=== PATIENT | male | born 1975 | race Hispanic/Latino ===

== ENCOUNTER 2018-07-05 21:28 | Inpatient (IN) | payer SELFPAY ==
[~2018-07-05] VITALS: Ht 162.6 cm; Wt 88.4 kg
[2018-07-05] MEDS ORDERED: ZOSYN 3.375GM+NS 50ML 50 ML IV ONE (22:09)
[2018-07-05 22:15] LABS: BASOPHILS % (AUTO) 0.5 % (0.0-5.0); EOSINOPHILS % (AUTO) 1.5 % (0.0-8.0); HEMATOCRIT 45.9 % (42-54); LYMPHOCYTES % (AUTO) 17.4 % (21.0-51.0); MEAN CORPUSCULAR HEMOGLOBIN 29.6 pg (27.0-33.0); MEAN CORPUSCULAR HGB CONC 34.2 g/dL (32.0-36.0); MEAN CORPUSCULAR VOLUME 86.6 fL (79-99); MONOCYTES % (AUTO) 7.5 % (3.0-13.0); NEUTROPHILS % (AUTO) 73.1 % (40.0-77.0); PLATELET COUNT (AUTO) 246 K/uL (130-400); RED CELL DISTRIBUTION WIDTH 13.5 % (11.0-15.5); WHITE BLOOD COUNT (AUTO) 10.7 K/uL (4.8-10.8)
[2018-07-05 22:28] LABS: CREATININE 1.3 mg/dL (0.5-1.5); POTASSIUM 3.7 mmol/L (3.5-5.1)
[2018-07-05 22:33] LABS: ALBUMIN 3.6 g/dL (3.5-5.0); BILIRUBIN,TOTAL 0.4 mg/dL (0.2-1.0); CRP QUANTITATIVE 109.9 mg/L (0.00-9.0); TOTAL PROTEIN, SERUM 8.4 g/dL (6.0-8.3)
[2018-07-05 23:26] LABS: ERYTHROCYTE SEDIMENTATION RATE 30 MM/HR (0-15)
[2018-07-05] MEDS ORDERED: TETANUS/DIPHTHERIA TOXOID [ADULT] 0.5 ML VIAL IM ONE (23:38)
[2018-07-05] MEDS ORDERED: VANCOMYCIN 1GM+NS 250ML 250 ML IV ONE (23:45)
[2018-07-06] MEDS: SODIUM CHLORIDE 0.9% 1000ML 1,000 ML IV SCH ×3 (00:42→21:10)
[2018-07-06] MEDS ORDERED: ONDANSETRON HCL 4 MG/2 ML VIAL IV PRN (00:45)
[2018-07-06] MEDS ORDERED: ACETAMINOPHEN 325 MG TAB PO PRN ×2 (00:45)
[2018-07-06] MEDS ORDERED: KETOROLAC TROMETHAMINE 30MG/ML ONE (01:49)
[2018-07-06] MEDS ORDERED: SODIUM CHLORIDE 0.9% 1000ML 1,000 ML IV ONE (03:42)
[2018-07-06] MEDS: ZOSYN 3.375GM+NS 50ML 50 ML IV SCH ×3 (05:00→21:00)
[2018-07-06] MEDS ORDERED: ONDANSETRON HCL 4 MG/2 ML VIAL ONE ×2 (05:37→11:38)
[2018-07-06] MEDS ORDERED: MORPHINE SULFATE 2 MG/ML 1ML SYG ONE ×3 (05:37→15:42)
[2018-07-06] MEDS ORDERED: ZOSYN 3.375GM+NS 50ML 50 ML IV ONE ×2 (06:08→14:31)
[2018-07-06] MEDS ORDERED: ENOXAPARIN SODIUM 30 MG/0.3 ML SQ ONE (08:28)
[2018-07-06] MEDS ORDERED: FAMOTIDINE/PF 20 MG/2 ML VIAL IV ONE (08:28)
[2018-07-06] MEDS: FAMOTIDINE/PF 20 MG/2 ML VIAL IV SCH ×2 (09:00→21:03)
[2018-07-06] MEDS: ENOXAPARIN SODIUM 30 MG/0.3 ML SQ SCH ×2 (09:00→21:06)
[2018-07-06 16:15] VITALS: BP 153/87
[2018-07-06] MEDS ORDERED: VANCOMYCIN PROTOCOL PER PHARMACY IV PRN (18:45)
[2018-07-06 19:00] VITALS: BP 146/90
[2018-07-06] MEDS: VANCOMYCIN 1GM+NS 250ML 250 ML IV SCH (21:10)
[2018-07-06 23:48] VITALS: BP 151/99
[2018-07-07] MEDS: MORPHINE SULFATE 2 MG/ML 1ML SYG IV PRN ×3 (03:54→18:47)
[2018-07-07 04:09] VITALS: BP 134/94
[2018-07-07 05:13] LABS: MEAN CORPUSCULAR HEMOGLOBIN 29.5 pg (27.0-33.0); MEAN CORPUSCULAR HGB CONC 34.2 g/dL (32.0-36.0); MEAN CORPUSCULAR VOLUME 86.4 fL (79-99); PLATELET COUNT (AUTO) 235 K/uL (130-400); RED BLOOD CELL COUNT(AUTO) 4.63 MIL/uL (4.50-6.20); RED CELL DISTRIBUTION WIDTH 13.3 % (11.0-15.5)
[2018-07-07 05:39] LABS: CREATININE 1.3 mg/dL (0.5-1.5); CRP QUANTITATIVE 61.9 mg/L (0.00-9.0); POTASSIUM 3.6 mmol/L (3.5-5.1)
[2018-07-07] MEDS: ZOSYN 3.375GM+NS 50ML 50 ML IV SCH ×2 (05:42→14:54)
[2018-07-07 08:00] VITALS: BP 153/95
[2018-07-07 08:55] LABS: HEMOGLOBIN A1C 5.9 % (4.0-6.0)
[2018-07-07] MEDS: VANCOMYCIN 1GM+NS 250ML 250 ML IV SCH ×2 (09:06→21:40)
[2018-07-07] MEDS: FAMOTIDINE/PF 20 MG/2 ML VIAL IV SCH ×2 (09:07→21:40)
[2018-07-07] MEDS: ENOXAPARIN SODIUM 30 MG/0.3 ML SQ SCH (09:08)
[2018-07-07 12:00] VITALS: BP 142/106
[2018-07-07 16:00] VITALS: BP 146/81
[2018-07-07] MEDS: CEFEPIME HCL 2 GM VIAL IVP SCH ×2 (18:40→23:20)
[2018-07-07 19:00] VITALS: BP 147/83
[2018-07-07] MEDS ORDERED: CEFEPIME HCL 1 GM VIAL ONE (23:08)
[2018-07-08] VITALS: BP 154/92
[2018-07-08] MEDS: MORPHINE SULFATE 2 MG/ML 1ML SYG IV PRN ×3 (03:11→14:05)
[2018-07-08 04:00] VITALS: BP 157/98
[2018-07-08 06:05] LABS: MEAN CORPUSCULAR HEMOGLOBIN 29.4 pg (27.0-33.0); MEAN CORPUSCULAR HGB CONC 34.3 g/dL (32.0-36.0); MEAN CORPUSCULAR VOLUME 85.6 fL (79-99); PLATELET COUNT (AUTO) 286 K/uL (130-400); RED BLOOD CELL COUNT(AUTO) 4.79 MIL/uL (4.50-6.20); RED CELL DISTRIBUTION WIDTH 13.1 % (11.0-15.5); WHITE BLOOD COUNT (AUTO) 8.6 K/uL (4.8-10.8)
[2018-07-08 06:18] LABS: CREATININE 1.2 mg/dL (0.5-1.5); POTASSIUM 3.9 mmol/L (3.5-5.1)
[2018-07-08] MEDS ORDERED: CEFEPIME HCL 1 GM VIAL ONE (07:28)
[2018-07-08] MEDS: CEFEPIME HCL 2 GM VIAL IVP SCH (07:30)
[2018-07-08 08:00] VITALS: BP 144/93
[2018-07-08] MEDS ORDERED: COMPOUND IV REFRIGERATED 1 EACH IVSOLN MISC PRN (08:30)
[2018-07-08] MEDS ORDERED: ENOXAPARIN SODIUM 30 MG/0.3 ML SQ SCH (09:00)
[2018-07-08] MEDS ORDERED: VANCOMYCIN 1.75 GM in SODIUM CHLORIDE 0.9% 250 ML IV SCH (09:00)
[2018-07-08] MEDS: FAMOTIDINE/PF 20 MG/2 ML VIAL IV SCH (09:34)
[2018-07-08] MEDS ORDERED: CLINDAMYCIN HCL 150 MG CAP PO SCH (10:30)
[2018-07-08 12:00] VITALS: BP 129/88
[2018-07-08] MEDS ORDERED: CLIN300C9 PO (13:27)
== END 2018-07-08 16:45 | disposition home or self-care (01) | DRG 558 ==
LOC: EDH 21:28 → EDHIP 21:29 → OBSVTOIN 21:29 → EDHIP 07-06 00:01 → UNDOADMOB 07-06 00:01 → 3BH 07-06 16:18
PROVIDERS: ADMIT Internal Medicine; ATTEND Internal Medicine
PROC: 3E0234Z Introduction of Serum, Toxoid and Vaccine into Muscle, Percutaneous Approach (ICD-10-PCS; principal; 2018-07-05)
DX: M65.871 Other synovitis and tenosynovitis, right ankle and foot (principal); L03.115 Cellulitis of right lower limb; S91.331A Puncture wound without foreign body, right foot, initial encounter; E11.9 Type 2 diabetes mellitus without complications; I10 Essential (primary) hypertension; W45.0XXA Nail entering through skin, initial encounter; Z90.49 Acquired absence of other specified parts of digestive tract; Y93.89 Activity, other specified; Y92.89 Other specified places as the place of occurrence of the external cause; Y99.8 Other external cause status; Z23 Encounter for immunization; Z79.84 Long term (current) use of oral hypoglycemic drugs
CPT/HCPCS: 36415; 73630; 73718; 80048; 80053; 80202; 80339; 83036; 83605; 85025; 85027; 85651; 86140; 87040; 90714; G0378; J0692; J1650; J1885; J2405; J2543; J3370; J3490; J7030

== ENCOUNTER 2020-12-15 21:02 | Emergency (ER) | payer SELFPAY ==
[~2020-12-15] VITALS: Ht 162.6 cm; Wt 90.7 kg
[~2020-12-15 21:02] MED LIST: CLIN300C10 PO
[2020-12-15 21:04] VITALS: BP 157/94
[2020-12-15] MEDS ORDERED: ACETAMINOPHEN 500 MG TABLET ONE (21:13)
== END 2020-12-15 23:54 | disposition left against medical advice (07) ==
LOC: EDH 21:02
DX: R05 Cough (principal); Z53.21 Procedure and treatment not carried out due to patient leaving prior to being seen by health care provider

== ENCOUNTER 2020-12-20 11:16 | Inpatient (IN) | payer OTHER, SELFPAY ==
[~2020-12-20] VITALS: Ht 162.6 cm; Wt 96.3 kg
[2020-12-20 11:54] VITALS: BP 164/101
[2020-12-20] MEDS ORDERED: ACETAMINOPHEN WITH CODEINE 1 TAB TAB PO ONE (12:00)
[2020-12-20 12:13] LABS: BASOPHILS % (AUTO) 0.1 % (0.0-5.0); EOSINOPHILS % (AUTO) 1.5 % (0.0-8.0); HEMATOCRIT 50.1 % (42-54); LYMPHOCYTES % (AUTO) 11.5 % (21.0-51.0); MEAN CORPUSCULAR HEMOGLOBIN 28.2 pg (27.0-33.0); MEAN CORPUSCULAR HGB CONC 32.9 g/dL (32.0-36.0); MEAN CORPUSCULAR VOLUME 85.6 fL (79-99); NEUTROPHILS % (AUTO) 82.6 % (40.0-77.0); PLATELET COUNT (AUTO) 197 K/uL (130-400); RED BLOOD CELL COUNT(AUTO) 5.85 MIL/uL (4.50-6.20); WHITE BLOOD COUNT (AUTO) 6.8 K/uL (4.8-10.8)
[2020-12-20 12:21] LABS: ABG BASE EXCESS 1.2 mmol/L (-2.0-3.0); ABG HCO3 24.4 mmol/L (21.0-28.0); ABG OXYGEN SATURATION 91.6 % (95.0-99.0); ABG PCO2 35 mmHg (35-48)
[2020-12-20 12:30] LABS: CREATININE 1.2 mg/dL (0.5-1.5); POTASSIUM 4.2 mmol/L (3.5-5.1)
[2020-12-20 12:33] LABS: ALBUMIN 3.1 g/dL (3.5-5.0); BILIRUBIN,TOTAL 0.5 mg/dL (0.2-1.0); TOTAL PROTEIN, SERUM 8.1 g/dL (6.0-8.3)
[2020-12-20 12:34] LABS: CRP QUANTITATIVE 146.5 mg/L (0.00-9.0)
[2020-12-20 12:53] LABS: INR 0.98 (0.85-1.15); PROTHROMBIN TIME 10.7 SEC (9.6-11.6)
[2020-12-20] MEDS: ALBUTEROL INHALER 90MCG/INH IH PRN (13:07)
[2020-12-20] MEDS ORDERED: DOXYCYCLINE HYCLATE 100 MG TABLET PO SCH (14:00)
[2020-12-20] MEDS ORDERED: PHARMACY COMMUNICATION**REMDESIVIR ORDER MISC SCH (14:00)
[2020-12-20] MEDS ORDERED: GUAIFENESIN-DM 200/20 MG 10 ML PO PRN (14:30)
[2020-12-20 14:48] LABS: LACTATE DEHYDROGENASE 475 U/L (81-234)
[2020-12-20 14:54] LABS: CREATINE KINASE, TOTAL 900 U/L (21-232)
[2020-12-20 14:59] LABS: HEMOGLOBIN A1C 8.4 % (4.0-6.0)
[2020-12-20] MEDS: DEXAMETHASONE SOD PHOSPHATE 4 MG/ML 1ML VIAL IVP SCH (16:20)
[2020-12-20] MEDS: CEFTRIAXONE 1G VIAL IVP SCH (16:20)
[2020-12-20] MEDS: INSULIN HUMULIN R 100 UNIT/ML 3ML SQ SCH ×2 (16:30→21:00)
[2020-12-20] MEDS ORDERED: COMPOUND IV REFRIGERATED 1 EACH IVSOLN MISC PRN (17:00)
[2020-12-20] MEDS ORDERED: REMDESIVIR (EUA) 520 200 MG in 0.9% NACL 250ML 250 ML IV ONE (17:00)
[2020-12-20] MEDS: LACTATED RINGERS 1000ML 1,000 ML IV SCH (20:49)
[2020-12-20 21:28] VITALS: BP 149/89
[2020-12-21 03:57] VITALS: BP 119/64
[2020-12-21] MEDS: REMDESIVIR LABS MISC SCH (06:00)
[2020-12-21] MEDS: INSULIN HUMULIN R 100 UNIT/ML 3ML SQ SCH ×4 (07:30→21:15)
[2020-12-21 08:00] VITALS: BP 109/70
[2020-12-21 08:51] LABS: ALBUMIN 2.7 g/dL (3.5-5.0); BILIRUBIN,TOTAL 0.5 mg/dL (0.2-1.0); CREATININE 1.2 mg/dL (0.5-1.5); POTASSIUM 4.1 mmol/L (3.5-5.1); TOTAL PROTEIN, SERUM 7.4 g/dL (6.0-8.3)
[2020-12-21] MEDS: LACTATED RINGERS 1000ML 1,000 ML IV SCH ×2 (08:55→21:40)
[2020-12-21] MEDS: DEXAMETHASONE SOD PHOSPHATE 4 MG/ML 1ML VIAL IVP SCH (08:55)
[2020-12-21] MEDS: ALBUTEROL INHALER 90MCG/INH IH PRN (08:56)
[2020-12-21] MEDS: ENOXAPARIN SODIUM 40 MG/0.4 ML SYRINGE SQ SCH (08:56)
[2020-12-21] MEDS: BARICITINIB (EUA) 2 MG TABLET PO SCH (11:37)
[2020-12-21] MEDS ORDERED: LOPERAMIDE 1 MG/7.5 ML UDCUP PO PRN (12:00)
[2020-12-21] MEDS: CEFTRIAXONE 1G VIAL IVP SCH (13:44)
[2020-12-21 15:42] VITALS: BP 126/70
[2020-12-21] MEDS: REMDESIVIR (EUA) 520 100 MG in 0.9% NACL 250ML 250 ML IV SCH (16:40)
[2020-12-21 18:30] VITALS: BP 131/80
[2020-12-21 20:00] VITALS: BP 110/56
[2020-12-22] VITALS (9 sets, daily range): BP systolic 53–152; BP diastolic 26–105
[2020-12-22] MEDS: REMDESIVIR LABS MISC SCH (06:00)
[2020-12-22 06:15] LABS: ALBUMIN 2.5 g/dL (3.5-5.0); BILIRUBIN,TOTAL 0.3 mg/dL (0.2-1.0); CRP QUANTITATIVE 56.3 mg/L (0.00-9.0); POTASSIUM 4.3 mmol/L (3.5-5.1); TOTAL PROTEIN, SERUM 6.7 g/dL (6.0-8.3)
[2020-12-22] MEDS: INSULIN HUMULIN R 100 UNIT/ML 3ML SQ SCH ×4 (07:30→20:57)
[2020-12-22] MEDS: LACTATED RINGERS 1000ML 1,000 ML IV SCH ×2 (08:52→22:02)
[2020-12-22] MEDS: ENOXAPARIN SODIUM 40 MG/0.4 ML SYRINGE SQ SCH (09:14)
[2020-12-22] MEDS: BARICITINIB (EUA) 2 MG TABLET PO SCH (09:14)
[2020-12-22] MEDS: DEXAMETHASONE SOD PHOSPHATE 4 MG/ML 1ML VIAL IVP SCH (09:14)
[2020-12-22 09:40] LABS: BASOPHILS % (AUTO) 0.1 % (0.0-5.0); EOSINOPHILS % (AUTO) 1.3 % (0.0-8.0); HEMATOCRIT 46.5 % (42-54); LYMPHOCYTES % (AUTO) 14.2 % (21.0-51.0); MEAN CORPUSCULAR HEMOGLOBIN 28.3 pg (27.0-33.0); MEAN CORPUSCULAR HGB CONC 32.7 g/dL (32.0-36.0); MEAN CORPUSCULAR VOLUME 86.6 fL (79-99); MONOCYTES % (AUTO) 7.8 % (3.0-13.0); NEUTROPHILS % (AUTO) 76.4 % (40.0-77.0); PLATELET COUNT (AUTO) 312 K/uL (130-400); RED BLOOD CELL COUNT(AUTO) 5.37 MIL/uL (4.50-6.20); RED CELL DISTRIBUTION WIDTH 12.9 % (11.0-15.5); WHITE BLOOD COUNT (AUTO) 8.3 K/uL (4.8-10.8)
[2020-12-22] MEDS: CEFTRIAXONE 1G VIAL IVP SCH (14:52)
[2020-12-22] MEDS: REMDESIVIR (EUA) 520 100 MG in 0.9% NACL 250ML 250 ML IV SCH (17:00)
[2020-12-23 04:07] VITALS: BP 118/73
[2020-12-23] MEDS: INSULIN HUMULIN R 100 UNIT/ML 3ML SQ SCH ×4 (05:49→20:20)
[2020-12-23] MEDS: REMDESIVIR LABS MISC SCH (06:00)
[2020-12-23 06:12] LABS: ALBUMIN 2.4 g/dL (3.5-5.0); BILIRUBIN,TOTAL 0.2 mg/dL (0.2-1.0); CRP QUANTITATIVE 22.6 mg/L (0.00-9.0); TOTAL PROTEIN, SERUM 6.5 g/dL (6.0-8.3)
[2020-12-23 08:00] VITALS: BP 146/94
[2020-12-23] MEDS: DEXAMETHASONE SOD PHOSPHATE 4 MG/ML 1ML VIAL IVP SCH (08:56)
[2020-12-23] MEDS: ENOXAPARIN SODIUM 40 MG/0.4 ML SYRINGE SQ SCH (08:57)
[2020-12-23] MEDS: BARICITINIB (EUA) 2 MG TABLET PO SCH (10:09)
[2020-12-23 12:00] VITALS: BP 139/102
[2020-12-23] MEDS: CEFTRIAXONE 1G VIAL IVP SCH (12:10)
[2020-12-23 16:00] VITALS: BP 126/77
[2020-12-23] MEDS: REMDESIVIR (EUA) 520 100 MG in 0.9% NACL 250ML 250 ML IV SCH (16:54)
[2020-12-23] MEDS: GUAIFENESIN-DM 200/20 MG 10 ML PO PRN (16:54)
[2020-12-23 19:55] VITALS: BP 129/79
[2020-12-23 23:28] VITALS: BP 123/67
[2020-12-24 04:00] VITALS: BP 148/92
[2020-12-24] MEDS: INSULIN HUMULIN R 100 UNIT/ML 3ML SQ SCH ×4 (05:13→20:34)
[2020-12-24] MEDS: GUAIFENESIN-DM 200/20 MG 10 ML PO PRN ×2 (05:21→19:34)
[2020-12-24] MEDS: REMDESIVIR LABS MISC SCH (06:00)
[2020-12-24 06:01] LABS: ALBUMIN 2.5 g/dL (3.5-5.0); BILIRUBIN,TOTAL 0.3 mg/dL (0.2-1.0); CRP QUANTITATIVE 12.5 mg/L (0.00-9.0); POTASSIUM 3.6 mmol/L (3.5-5.1); TOTAL PROTEIN, SERUM 6.5 g/dL (6.0-8.3)
[2020-12-24 06:03] LABS: BASOPHILS % (AUTO) 0.2 % (0.0-5.0); EOSINOPHILS % (AUTO) 0.1 % (0.0-8.0); HEMATOCRIT 45.3 % (42-54); LYMPHOCYTES % (AUTO) 14.4 % (21.0-51.0); MEAN CORPUSCULAR HEMOGLOBIN 28.4 pg (27.0-33.0); MEAN CORPUSCULAR HGB CONC 33.1 g/dL (32.0-36.0); MEAN CORPUSCULAR VOLUME 85.8 fL (79-99); MONOCYTES % (AUTO) 6.8 % (3.0-13.0); PLATELET COUNT (AUTO) 344 K/uL (130-400); RED BLOOD CELL COUNT(AUTO) 5.28 MIL/uL (4.50-6.20); RED CELL DISTRIBUTION WIDTH 12.4 % (11.0-15.5); WHITE BLOOD COUNT (AUTO) 10.9 K/uL (4.8-10.8)
[2020-12-24 08:00] VITALS: BP 156/97
[2020-12-24] MEDS: DEXAMETHASONE SOD PHOSPHATE 4 MG/ML 1ML VIAL IVP SCH (08:45)
[2020-12-24] MEDS: BARICITINIB (EUA) 2 MG TABLET PO SCH (08:45)
[2020-12-24] MEDS: ENOXAPARIN SODIUM 40 MG/0.4 ML SYRINGE SQ SCH (08:46)
[2020-12-24 12:00] VITALS: BP 121/79
[2020-12-24] MEDS: CEFTRIAXONE 1G VIAL IVP SCH (13:33)
[2020-12-24 16:00] VITALS: BP 135/95
[2020-12-24] MEDS: REMDESIVIR (EUA) 520 100 MG in 0.9% NACL 250ML 250 ML IV SCH (16:29)
[2020-12-24 20:49] VITALS: BP 119/76
[2020-12-25 00:11] VITALS: BP 130/86
[2020-12-25] MEDS: GUAIFENESIN-DM 200/20 MG 10 ML PO PRN (01:44)
[2020-12-25 04:27] VITALS: BP 127/76
[2020-12-25 05:03] LABS: BASOPHILS % (AUTO) 0.2 % (0.0-5.0); EOSINOPHILS % (AUTO) 0.2 % (0.0-8.0); HEMATOCRIT 43.4 % (42-54); MEAN CORPUSCULAR HEMOGLOBIN 28.7 pg (27.0-33.0); MEAN CORPUSCULAR HGB CONC 34.3 g/dL (32.0-36.0); MEAN CORPUSCULAR VOLUME 83.6 fL (79-99); MONOCYTES % (AUTO) 6.1 % (3.0-13.0); NEUTROPHILS % (AUTO) 79.3 % (40.0-77.0); PLATELET COUNT (AUTO) 397 K/uL (130-400); RED BLOOD CELL COUNT(AUTO) 5.19 MIL/uL (4.50-6.20); RED CELL DISTRIBUTION WIDTH 12.2 % (11.0-15.5); WHITE BLOOD COUNT (AUTO) 12.9 K/uL (4.8-10.8)
[2020-12-25 05:31] LABS: ALBUMIN 2.4 g/dL (3.5-5.0); BILIRUBIN,TOTAL 0.5 mg/dL (0.2-1.0); CRP QUANTITATIVE 30.5 mg/L (0.00-9.0); POTASSIUM 3.8 mmol/L (3.5-5.1); TOTAL PROTEIN, SERUM 6.3 g/dL (6.0-8.3)
[2020-12-25] MEDS: INSULIN HUMULIN R 100 UNIT/ML 3ML SQ SCH ×2 (05:41→11:30)
[2020-12-25 08:00] VITALS: BP 125/75
[2020-12-25] MEDS: ENOXAPARIN SODIUM 40 MG/0.4 ML SYRINGE SQ SCH (08:35)
[2020-12-25] MEDS: DEXAMETHASONE SOD PHOSPHATE 4 MG/ML 1ML VIAL IVP SCH (08:35)
[2020-12-25] MEDS: BARICITINIB (EUA) 2 MG TABLET PO SCH (08:43)
[2020-12-25 11:00] VITALS: BP 120/79
[2020-12-25] MEDS: ALBUTEROL INHALER 90MCG/INH IH PRN (13:38)
[2020-12-25] MEDS: CEFTRIAXONE 1G VIAL IVP SCH (14:00)
== END 2020-12-25 15:20 | DRG 871 ==
LOC: EDH 11:16 → EDHIP 11:17 → 4BH 12-22 19:55
PROVIDERS: ADMIT Internal Medicine; ATTEND Internal Medicine
PROC: XW033E5 Introduction of Remdesivir Anti-infective into Peripheral Vein, Percutaneous Approach, New Technology Group 5 (ICD-10-PCS; principal; 2020-12-20)
PROC: XW0DXM6 Introduction of Baricitinib into Mouth and Pharynx, External Approach, New Technology Group 6 (ICD-10-PCS; 2020-12-21)
DX: A41.89 Other specified sepsis (principal); J12.82 Pneumonia due to coronavirus disease 2019; U07.1 COVID-19; J96.01 Acute respiratory failure with hypoxia; M62.82 Rhabdomyolysis; E87.1 Hypo-osmolality and hyponatremia; E11.9 Type 2 diabetes mellitus without complications; E66.9 Obesity, unspecified; Z68.34 Body mass index [BMI] 34.0-34.9, adult; Z83.3 Family history of diabetes mellitus
CPT/HCPCS: 36415; 36600; 71045; 80053; 82550; 82728; 82803; 82948; 83036; 83605; 83615; 83880; 84145; 84484; 85025; 85378; 85610; 86140; 87040; 87426; 87507; 93005; 94760; G0378; J0696; J1100; J1650; J1815; J7050; J7120

== ENCOUNTER 2022-01-24 10:10 | Emergency (ER) | payer OTHER ==
[~2022-01-24] VITALS: Ht 165.1 cm; Wt 86.2 kg
[~2022-01-24 10:10] MED LIST changes: +CLIN-141 PO; -CLIN300C10 PO
[2022-01-24 10:12] VITALS: BP 130/109
[2022-01-24] MEDS ORDERED: OCTYL 2-CYANOACRYLATE 1 EACH TP ONE (11:04)
[2022-01-24] MEDS ORDERED: OCTYL 2-CYANOACRYLATE 1 EACH TP SCH (11:30)
== END 2022-01-24 11:35 | disposition home or self-care (01) ==
LOC: EDH 10:10
DX: S01.81XA Laceration without foreign body of other part of head, initial encounter (principal); X58.XXXA Exposure to other specified factors, initial encounter; Y93.89 Activity, other specified; Y92.89 Other specified places as the place of occurrence of the external cause; Y99.8 Other external cause status
CPT/HCPCS: 12011

== ENCOUNTER 2023-01-09 20:30 | Emergency (ER) | payer OTHER ==
[~2023-01-09] VITALS: Ht 165.1 cm; Wt 93.9 kg
[~2023-01-09 20:30] MED LIST changes: +CEPH500B PO; +METF-444 PO
[2023-01-09 21:22] VITALS: BP 150/100; PULSE 78; RESP 20
[2023-01-10] MEDS ORDERED: CLOT15CR5 TP (00:25)
[2023-01-10] MEDS ORDERED: DOXY100T21 PO (00:25)
[2023-01-10] MEDS ORDERED: CEFTRIAXONE 500MG VIAL IM SCH (00:30)
[2023-01-10] MEDS ORDERED: AZITHROMYCIN 250 MG TABLET PO ONE (00:30)
== END 2023-01-10 00:44 | disposition home or self-care (01) ==
LOC: EDH 20:30
DX: N34.2 Other urethritis (principal); Z79.84 Long term (current) use of oral hypoglycemic drugs; Z79.899 Other long term (current) drug therapy
CPT/HCPCS: 99283; 96372; J0696

== ENCOUNTER 2023-09-27 21:37 | Emergency (ER) | payer OTHER ==
[~2023-09-27] VITALS: Ht 162.6 cm; Wt 90.7 kg
[~2023-09-27 21:37] MED LIST changes: +CLOT15CR5 TP; +DOXY100T21 PO
[2023-09-27] MEDS: BACLOFEN 10 MG TABLET PO SCH (21:57)
[2023-09-27] MEDS: ACETAMINOPHEN WITH CODEINE 1 TAB TAB PO ONE (21:57)
[2023-09-27] MEDS: KETOROLAC 30MG VIAL (30MG/ML) IVP ONE (21:58)
[2023-09-27] MEDS ORDERED: KETO10TA2 PO (22:46)
[2023-09-27] MEDS ORDERED: BACL10TA PO (22:46)
[2023-09-27 22:54] VITALS: BP 142/74; PULSE 78; RESP 20; O2SAT 98
== END 2023-09-27 23:06 | disposition home or self-care (01) ==
LOC: EDH 21:37
DX: M79.652 Pain in left thigh (principal); M62.838 Other muscle spasm; E11.9 Type 2 diabetes mellitus without complications; Z79.899 Other long term (current) drug therapy; Z90.49 Acquired absence of other specified parts of digestive tract; Z98.890 Other specified postprocedural states
CPT/HCPCS: 99283; 96374; 73552; J1885

== ENCOUNTER 2023-10-05 21:15 | Emergency (ER) | payer OTHER ==
[~2023-10-05] VITALS: Ht 162.6 cm; Wt 90.3 kg
[~2023-10-05 21:15] MED LIST changes: +BACL10TA PO; +KETO10TA2 PO
[2023-10-05 22:51] VITALS: BP 152/55; PULSE 74; RESP 12; O2SAT 98
[2023-10-05] MEDS: TRIAMCINOLONE ACETONIDE 40 MG/ML 1ML VIAL IM ONE (22:51)
[2023-10-05] MEDS: ORPHENADRINE CITRATE 30 MG/ML ML IM ONE (22:51)
[2023-10-05] MEDS ORDERED: CLOT15CR23 TP (23:32)
[2023-10-05] MEDS ORDERED: KETO10TA2 PO (23:41)
== END 2023-10-05 23:45 | disposition home or self-care (01) ==
LOC: EDH 21:15
DX: S76.312A Strain of muscle, fascia and tendon of the posterior muscle group at thigh level, left thigh, initial encounter (principal); N48.1 Balanitis; Z79.84 Long term (current) use of oral hypoglycemic drugs; Z79.899 Other long term (current) drug therapy; Z90.49 Acquired absence of other specified parts of digestive tract; Z98.890 Other specified postprocedural states
CPT/HCPCS: 99284; 96372 ×2; J3301; J2360

== ENCOUNTER 2023-12-18 13:49 | Emergency (ER) | payer SELFPAY ==
[~2023-12-18] VITALS: Ht 162.6 cm; Wt 90.7 kg
[~2023-12-18 13:49] MED LIST changes: +CLOT15CR23 TP
[2023-12-18] MEDS ORDERED: VALA100031 PO (15:42)
[2023-12-18] MEDS ORDERED: PRED20TA3 PO (15:42)
[2023-12-18] MEDS: PREDNISONE 20 MG TABLET PO ONE (15:55)
[2023-12-18 15:57] VITALS: BP 148/88; PULSE 72; RESP 18; O2SAT 97
== END 2023-12-18 15:57 | disposition home or self-care (01) ==
LOC: EDH 13:49
DX: G51.0 Bell's palsy (principal); Z79.84 Long term (current) use of oral hypoglycemic drugs; Z79.899 Other long term (current) drug therapy; Z90.49 Acquired absence of other specified parts of digestive tract; Z98.890 Other specified postprocedural states
CPT/HCPCS: 70450